=== PATIENT | female | born 1970 | race Caucasian/White ===

== ENCOUNTER 2016-11-13 08:17 | Emergency (ER) | payer OTHER ==
[2016-11-13] MEDS ORDERED: NS 1,000 ML IV ONE (08:26)
--- NOTE | 2016-11-13 08:37 | EDPHY ---
H & P Stated Complaint: Dx UTI last week;on antibx;now has L flank pain and nausea HPI/ROS: Chief complaint: Left kidney pain History of present illness: This is a 46-year-old female who presents to the emergency department for evaluation of left kidney pain. Patient reports the onset of symptoms this morning. Patient reports approximately 2 weeks ago she developed urinary tract infection like symptoms. She states she had dysuria, frequency and hesitancy. She attempted to self treat for the 1st week but symptoms persisted. Ultimately she went to an urgent care was started on Bactrim which she has been taking as prescribed. However symptoms persist. She denies other specific precipitating factors. She denies alleviating factors. She denies other associated signs or symptoms including no fevers, no abdominal pain, no nausea or vomiting. Review of systems: A 10 point review of systems was obtained and other than described above was negative - Personal History LMP (Females 10-55): 8-14 Days Ago Current Tetanus Diphtheria and Acellular Pertussis (TDAP): Yes - Medical/Surgical History Other PMH: depression. ADHD - Social History Smoking Status: Never smoked - Physical Exam Exam: General Appearance: Alert, nontoxic. Eyes: Pupils equal and round no pallor or injection. ENT, Mouth: Mucous membranes moist. Respiratory: There are no retractions, lungs are clear to auscultation. Cardiovascular: Regular rate and rhythm. Gastrointestinal: Abdomen is soft and non tender, no masses, bowel sounds normal. Genitourinary: No CVA tenderness. Neurological: Alert and oriented. Strength and sensation intact and symmetrical. Skin: Warm and dry, no rashes. Musculoskeletal: Neck is supple non tender. Extremities are symmetrical, full range of motion. Psychiatric: Patient is oriented X 3, there is no agitation. Constitutional: Initial Vital Signs Temperature (C) 36.4 C 11/13/16 08:17 Heart Rate 73 11/13/16 08:17 Respiratory Rate 18 11/13/16 08:17 Blood Pressure 121/72 H 11/13/16 08:17 O2 Sat (%) 97 11/13/16 08:17 O2 Delivery Mode Room Air Allergies/Adverse Reactions: No Known Allergies Allergy (Unverified 11/13/16 08:19) Home Medications: Medication Instructions Recorded Cephalexin [Keflex] 500 mg PO QID 10 Days 11/13/16 Dexadrine 11/13/16 Hydrocodone/APAP 5/325 [[place] 1 tab PO Q6H #6 tab 11/13/16 5/325 (*)] Sulfamethox/Tmp 800/160 mg 1 tab PO 11/13/16 [Bactrim Ds] lamoTRIgine [LamICTAL 100 MG (*)] 100 mg PO 11/13/16 Medical Decision Making - Diagnostics Imaging: CT scan of the abdomen pelvis without IV contrast shows what appears to be a left UPJ obstruction, no calculi noted, with severe left hydronephrosis ED Course/Re-evaluation: Patient is discussed with my secondary supervising physician Dr. Malik Galvin. Patient presents to the emergency department with urinary tract infection symptoms and now left flank pain. On presentation she is nontoxic. She is afebrile and vital signs are stable. She has a benign physical exam. Laboratory studies are unremarkable including a normal creatinine and white blood cell level. Urinalysis is concerning for persistent infection. CT scan is pursued to ensure no nephrolithiasis, no nephrolithiasis is noted but a UPJ obstruction causing left hydronephrosis is noted. I have consulted with Urology , Dr. Markel Wu. He feels as long as patient is nontoxic patient can be discharged home on antibiotics and follow up in clinic. Patient is well- appearing. She has been given a dose of Rocephin in the emergency department and will be discharged home on Keflex. Home care is discussed. She is asked to follow up with Urology for further evaluation and care. Referral information is provided. Strict return precautions are given. Patient voiced understanding and agreement with plan. Differential Diagnosis: Included but not limited to cystitis, pyelonephritis, nephrolithiasis, obstructive uropathy - Data Points Laboratory Results: Laboratory Results 11/13/16 08:35 11/13/16 08:35 11/13/16 11/13/16 08:36 08:35 WBC 5.35 10^3/uL (3.80-9.50) RBC 4.72 10^6/uL (4.18-5.33) Hgb 15.3 g/dL (12.6-16.3) Hct 43.7 % (38.0-47.0) MCV 92.6 fL (81.5-99.8) MCH 32.4 pg (27.9-34.1) MCHC 35.0 g/dL (32.4-36.7) RDW 11.9 % (11.5-15.2) Plt Count 206 10^3/uL (150-400) MPV 9.3 fL (8.7-11.7) Neut % (Auto) 69.8 % (39.3-74.2) Lymph % (Auto) 22.2 % (15.0-45.0) [place] % (Auto) 6.7 % (4.5-13.0) Eos % (Auto) 0.7 % (0.6-7.6) Baso % (Auto) 0.4 % (0.3-1.7) Nucleat RBC Rel Count 0.0 % (0.0-0.2) Absolute Neuts (auto) 3.73 10^3/uL (1.70-6.50) Absolute Lymphs (auto) 1.19 10^3/uL (1.00-3.00) Absolute Monos (auto) 0.36 10^3/uL (0.30-0.80) Absolute Eos (auto) 0.04 10^3/uL (0.03-0.40) Absolute Basos (auto) 0.02 10^3/uL (0.02-0.10) Absolute Nucleated RBC 0.00 10^3/uL (0-0.01) Immature Gran % 0.2 % (0.0-1.1) Immature Gran # 0.01 10^3/uL (0.00-0.10) Sodium 137 mEq/L (134-144) Potassium 3.8 mEq/L (3.5-5.2) Chloride 102 mEq/L (97-110) Carbon Dioxide 25 mEq/l (22-31) Anion Gap 10 mEq/L (8-16) BUN 5 L mg/dL (7-23) Creatinine 0.8 mg/dL (0.6-1.0) Estimated GFR > 60 Glucose 102 H mg/dL (70-100) Calcium 9.0 mg/dL (8.5-10.4) Beta HCG, Qual NEGATIVE Urine Color YELLOW Urine Appearance MODERATELY TURBID Urine pH 6.0 (5.0-7.5) Ur Specific [place] 1.006 (1.002-1.030) Urine Protein NEGATIVE (NEGATIVE) Urine Ketones NEGATIVE (NEGATIVE) Urine Blood 1+ H (NEGATIVE) Urine Nitrate POSITIVE H (NEGATIVE) Urine Bilirubin NEGATIVE (NEGATIVE) Urine Urobilinogen NEGATIVE EU (0.2-1.0) Ur Leukocyte Esterase 3+ H (NEGATIVE) Urine RBC 25-50 H /hpf (0-3) Urine WBC 50-182 H /hpf (0-3) Ur Epithelial Cells NONE SEEN /lpf (NONE-1+) Urine Bacteria 2+ H /hpf (NONE SEEN) Ur Culture Indicated? INDICATED H (NI) Urine Glucose NEGATIVE (NEGATIVE) Medications Given: Discontinued Medications Sodium Chloride (Ns) 1,000 mls @ 0 mls/hr IV ONCE ONE PRN Reason: Wide Open Stop: 11/13/16 08:27 Last Admin: 11/13/16 08:50 Dose: 1,000 mls Ceftriaxone Sodium/Dextrose (Rocephin 1 Gm (Premix)) 50 mls @ 100 mls/hr IV EDNOW ONE PRN Reason: Protocol Stop: 11/13/16 10:18 Last Admin: 11/13/16 10:08 Dose: 50 mls Ketorolac Tromethamine (Toradol) 15 mg IVP EDNOW ONE Stop: 11/13/16 10:29 Last Admin: 11/13/16 11:14 Dose: 15 mg Departure - Departure Disposition: Home, Routine, Self-Care Clinical Impression: Acute pyelonephritis Condition: Good Instructions: Urinary Tract Infection in Women (ED) Additional Instructions: Follow-up with a primary care doctor and Urology this week for recheck Stop taking the Bactrim you were prescribed and start taking the Keflex Take all antibiotics as prescribed until finished even if feeling better In regards to pain control see the following: Use ibuprofen 600 mg 3 times a day for the next 2-3 days for pain In addition You have been prescribed [[place]] for pain. [[place]] contains Tylenol, do not take extra Tylenol/acetaminophen/Apap with it. It is sedating. Drink plenty of fluids to stay hydrated If symptoms worsen or new symptoms develop return to the emergency department for recheck Referrals: IN STATE,. [Primary Care Provider] - As per Instructions Markel Wu MD [Medical Doctor] - As per Instructions Ann Herrera MD [Medical Doctor] - As per Instructions Prescriptions: Cephalexin [Keflex] 500 mg PO QID 10 Days Hydrocodone/APAP 5/325 [[place] 5/325 (*)] 1 tab PO Q6H #6 tab
[2016-11-13 08:54] LABS: % IMMATURE GRANULYOCYTES 0.2 % (0.0-1.1); ABSOLUTE IMMATURE GRANULOCYTES 0.01 10^3/uL (0.00-0.10); ADD DIFF? NO; ADD MORPH? NO; ADD SCAN? NO; ATYPICAL LYMPHOCYTE FLAG 50 (0-99); FRAGMENT RBC FLAG 0 (0-99); HEMATOCRIT 43.7 % (38.0-47.0); HEMOGLOBIN 15.3 g/dL (12.6-16.3); LEFT SHIFT FLG 0 (0-99); LIPEMIA HEMOLYSIS FLAG 90 (0-99); MEAN CELL HEMOGLOBIN 32.4 pg (27.9-34.1); MEAN CELL VOLUME 92.6 fL (81.5-99.8); MEAN PLATELET VOLUME 9.3 fL (8.7-11.7); PLATELET CLUMPS FLAG 0 (0-99); PLATELET COUNT 206 10^3/uL (150-400); RED BLOOD CELL COUNT 4.72 10^6/uL (4.18-5.33); RED CELL DISTRIBUTION WIDTH 11.9 % (11.5-15.2)
[2016-11-13 09:07] LABS: ANION GAP 10 mEq/L (8-16); CARBON DIOXIDE 25 mEq/l (22-31); CHLORIDE 102 mEq/L (97-110); CREATININE 0.8 mg/dL (0.6-1.0); GLOMERULAR FILTRATION RATE > 60; GLUCOSE 102 mg/dL (70-100); POTASSIUM 3.8 mEq/L (3.5-5.2); SODIUM 137 mEq/L (134-144)
[2016-11-13 09:37] LABS: COLOR YELLOW; LEUKOCYTE ESTERASE,URINE 3+ (NEGATIVE); NITRITE,URINE POSITIVE (NEGATIVE)
[2016-11-13 09:54] LABS: BACTERIA 2+ /hpf (NONE SEEN); RBC,URINE 25-50 /hpf (0-3); WBC,URINE 50-182 /hpf (0-3)
[2016-11-13] MEDS ORDERED: KETOROLAC 15 MG/1 ML SDV IVP ONE (10:28)
[2016-11-13 11:36] VITALS: BP 121/76; PULSE 67; RESP 16; TEMP 97.9; O2SAT 98
--- NOTE | 2016-11-13 11:40 | CT ---
CT Scan of the Urinary Tract (Abdomen and Pelvis Without Contrast) November 13, 2016 at 1048 Hours Clinical Indications: Left flank pain. Technique: Multidetector helical CT imaging was performed from the kidneys to the urinary bladder wi thout contrast. Dose reduction techniques were utilized. Findings Abdomen: The lung bases are clear. There appears to be some focal fatty infiltration along the falcif orm ligament of the liver. Gallbladder is unremarkable. Pancreas is unremarkable. Spleen is unremarka ble. There is severe left hydronephrosis and dilatation of the left renal pelvis, indicating a ureter opelvic junction obstruction. No evidence for an obstructing calculus. There is perinephric stranding around the left kidney. No evidence for hydronephrosis of the right kidney or nephrolithiasis. Pelvis: No evidence of dilatation of the ureter or ureteral calculus. No evidence for bladder calculu s. Minimal free fluid is seen in the cul-de-sac. Moderate stool is seen in the colon. No evidence for diverticulitis. No evidence for small bowel obstruction. Degenerative disk and degenerative joint di sease is seen in the lower lumbar spine. Mild chronic anterior wedge compression deformity is seen of T12. Impression: 1. Severe hydronephrosis left kidney with ureteropelvic obstruction. No evidence for obstructing calc ulus. 2. Moderate constipation. 3. Other chronic findings, as above. Results called to Myke Butler PA-C. Attention: This CT examination is specifically designed to evaluate patients who are clinically susp ected of having acute obstructive uropathy. This examination does not use radiographic contrast, and as such, provides only a limited evaluation of the abdomen, pelvis, and retroperitoneum. If there is further clinical suspicion for pathological conditions other than obstructive uropathy, a complete CT evaluation of the abdomen and pelvis utilizing intravenous, oral, and rectal contrast should be c onsidered.
== END 2016-11-13 11:35 | disposition home or self-care (01) ==
DX: N10 Acute pyelonephritis (principal)
CPT/HCPCS: 96365; J0696; J1885

== ENCOUNTER → 2018-01-08 | Outpatient (CLI) | payer OTHER | LOC: FIMAGING 14:47 | PROVIDERS: ATTEND Physician Assistant | DX: N13.0 Hydronephrosis with ureteropelvic junction obstruction (principal); M51.34 Other intervertebral disc degeneration, thoracic region ==

== ENCOUNTER 2018-01-09 04:37 | Emergency (ER) | payer OTHER ==
[2018-01-09] MEDS ORDERED: HYDROmorphONE/DILAUDID 2 MG/ML INJ IVP ONE (04:48)
[2018-01-09] MEDS ORDERED: NS 1,000 ML IV ONE (04:48)
--- NOTE | 2018-01-09 04:48 | EDPHY ---
H & P Stated Complaint: L flank pain - Told to come in by PCP due to Hydronephrosis. Time Seen by Provider: 01/09/18 04:48 HPI/ROS: HPI CHIEF COMPLAINT: Left flank pain worsening. HISTORY OF PRESENT ILLNESS: This patient very pleasant 47-year-old female, for the past 2 weeks she has had some left-sided discomfort however last 48 hr it has gotten worse. She went saw her primary care doctor today and had a urinalysis done any CT scan the CT scan according to the patient showed severe hydronephrosis. She reports that her urinalysis did not show any infection but she was still started on ciprofloxacin. She was referred to Urology. She cannot see Urology till tomorrow. She is referred to the ER tonight after she called her primary care doctor with worsening left flank pain. She has had nausea but no vomiting. Denies fever. Denies urinary symptoms. Denies chest pain or shortness of breath or hematuria. Past Medical History: No significant medical history Past Surgical History: No significant surgical history Social History: Denies drugs alcohol tobacco. Family History: Noncontributory ROS REVIEW OF SYSTEMS: A comprehensive 10 point review of systems is otherwise negative aside from elements mentioned in the history of present illness. Exam Constitutional appears well nontoxic no acute distress, triage nursing summary reviewed, vital signs reviewed, awake/alert. Eyes normal conjunctivae and sclera, EOMI, PERRLA. HENT normal inspection, atraumatic, moist mucus membranes, no epistaxis, neck supple/ no meningismus, no raccoon eyes. Respiratory clear to auscultation bilaterally, normal breath sounds, no respiratory distress, no wheezing. Cardiovascular rate normal, regular rhythm, no murmur, no edema, distal pulses normal. Gastrointestinal soft, non-tender, no rebound, no guarding, normal bowel sounds, no distension, no pulsatile mass. Genitourinary mild tender palpation left flank, Musculoskeletal no midline vertebral tenderness, full range of motion, no calf swelling, no tenderness of extremities, no meningismus, good pulses, neurovascularly intact. Skin pink, warm, & dry, no rash, skin atraumatic. Neurologic awake, alert and oriented x 3, AAOx3, moves all 4 extremities equally, motor intact, sensory intact, CN II-XII intact, normal cerebellar, normal vision, normal speech. Psychiatric normal mood/affect. Heme/Lymph/Immune no lymphadenopathy. Differential Diagnosis: Includes but is not limited to in a particular order, UTI, pyelonephritis, hydroureter, kidney stone, ureteral obstruction, sepsis Medical Decision Making: Plan for this patient IV establishment with IV hydration, IV pain control 0.5 mg Dilaudid, check basic blood work, repeat urinalysis. I will review her CT scan and urinalysis from today. Re-evaluation: Patient CT earlier today that showed obstruction left ureter. I was able to review the CT from earlier today it does show severe hydronephrosis from a left UPJ obstruction. No calculus seen. This is similar to the previous CT scan dated in 2017 on November 13. 0557: Spoke with Dr. Martinez, I discussed this case in length with Urology went over her to CT scan results and blood work and urinalysis today. She does recommend she follows up with Urology tomorrow 1:00 p.m. And R to previously scheduled appointment. Provide pain medicine for pain control and comfort at home. I have discussed this with this patient she is comfortable this plan. Her blood work has been reviewed she does not have a systemic leukocytosis, her creatinine is normal, CT scans have been reviewed both October CT and yesterday CT. She has a left UPJ obstruction. Unclear what obstructing this but will need urology referral and patient understands this. Source: Patient - Personal History LMP (Females 10-55): 1-7 Days Ago Current Tetanus/Diphtheria Vaccine: Unsure Current Tetanus Diphtheria and Acellular Pertussis (TDAP): Unsure - Medical/Surgical History Hx Asthma: No Hx Chronic Respiratory Disease: No Hx Diabetes: No Hx Cardiac Disease: No Hx Renal Disease: No Hx Cirrhosis: No Hx Alcoholism: No Hx HIV/AIDS: No Hx Splenectomy or Spleen Trauma: No Other PMH: depression. D&C. Hydronephrosis - Social History Smoking Status: Never smoked Constitutional: Initial Vital Signs Temperature (C) 36.4 C 01/09/18 04:40 Heart Rate 49 L 01/09/18 04:40 Respiratory Rate 15 01/09/18 04:40 Blood Pressure 125/64 H 01/09/18 04:40 O2 Sat (%) 92 01/09/18 04:40 O2 Delivery Mode Room Air Allergies/Adverse Reactions: No Known Allergies Allergy (Unverified 11/13/16 08:19) Home Medications: Medication Instructions Recorded Dexadrine 11/13/16 lamoTRIgine [LamICTAL 100 MG (*)] 100 mg PO 11/13/16 Ciprofloxacin 01/09/18 Hydrocodone/APAP 5/325 [[place] 1 - 2 tab PO Q4H PRN #10 tab 01/09/18 5/325] Pramipexole Di-HCl 01/09/18 Promethazine HCl [Phenergan 12.5mg 12.5 mg PO BID #10 tablet 01/09/18 tab] Medical Decision Making - Data Points Laboratory Results: Laboratory Results 01/09/18 05:00 01/09/18 05:00 01/09/18 01/09/18 01/09/18 05:00 05:00 05:00 WBC RBC Hgb Hct MCV MCH MCHC RDW Plt Count MPV Neut % (Auto) Lymph % (Auto) [place] % (Auto) Eos % (Auto) Baso % (Auto) Nucleat RBC Rel Count Absolute Neuts (auto) Absolute Lymphs (auto) Absolute Monos (auto) Absolute Eos (auto) Absolute Basos (auto) Absolute Nucleated RBC Immature Gran % Immature Gran # Sodium 140 mEq/L mEq/L (135-145) Potassium 3.7 mEq/L mEq/L (3.5-5.2) Chloride 99 mEq/L mEq/L (97-110) Carbon Dioxide 28 mEq/l mEq/l (22-31) Anion Gap 13 mEq/L mEq/L (8-16) BUN 14 mg/dL mg/dL (7-23) Creatinine 0.9 mg/dL mg/dL (0.6-1.0) Estimated GFR > 60 Glucose 128 mg/dL H mg/dL (70-100) Calcium 8.8 mg/dL mg/dL (8.5-10.4) Total Bilirubin 0.9 mg/dL mg/dL (0.1-1.4) Conjugated Bilirubin 0.2 mg/dL mg/dL (0.0-0.5) Unconjugated Bilirubin 0.7 mg/dL mg/dL (0.0-1.1) AST 21 IU/L IU/L (14-46) ALT 36 IU/L IU/L (9-52) Alkaline Phosphatase 51 IU/L IU/L (38-126) Total Protein 7.1 g/dL g/dL (6.3-8.2) Albumin 4.2 g/dL g/dL (3.5-5.0) Lipase 72 IU/L IU/L (23-300) Beta HCG, Qual NEGATIVE Urine Color PALE YELLOW Urine Appearance HAZY Urine pH 5.0 (5.0-7.5) Ur Specific [place] 1.005 (1.002-1.030) Urine Protein NEGATIVE (NEGATIVE) Urine Ketones NEGATIVE (NEGATIVE) Urine Blood 1+ H (NEGATIVE) Urine Nitrate NEGATIVE (NEGATIVE) Urine Bilirubin NEGATIVE (NEGATIVE) Urine Urobilinogen NEGATIVE EU EU (0.2-1.0) Ur Leukocyte Esterase NEGATIVE (NEGATIVE) Urine RBC NONE SEEN /hpf /hpf (0-3) Urine WBC NONE SEEN /hpf /hpf (0-3) Ur Epithelial Cells 1+ /lpf /lpf (NONE-1+) Urine Bacteria TRACE /hpf H /hpf (NONE SEEN) Urine Mucus TRACE /lpf /lpf (NONE-1+) Urine Glucose NEGATIVE (NEGATIVE) 01/09/18 05:00 WBC 5.12 10^3/uL 10^3/uL (3.80-9.50) RBC 4.76 10^6/uL 10^6/uL (4.18-5.33) Hgb 14.7 g/dL g/dL (12.6-16.3) Hct 44.1 % % (38.0-47.0) MCV 92.6 fL fL (81.5-99.8) MCH 30.9 pg pg (27.9-34.1) MCHC 33.3 g/dL g/dL (32.4-36.7) RDW 13.5 % % (11.5-15.2) Plt Count 193 10^3/uL 10^3/uL (150-400) MPV 10.1 fL fL (8.7-11.7) Neut % (Auto) 65.8 % % (39.3-74.2) Lymph % (Auto) 24.8 % % (15.0-45.0) [place] % (Auto) 6.8 % % (4.5-13.0) Eos % (Auto) 1.8 % % (0.6-7.6) Baso % (Auto) 0.6 % % (0.3-1.7) Nucleat RBC Rel Count 0.0 % % (0.0-0.2) Absolute Neuts (auto) 3.37 10^3/uL 10^3/uL (1.70-6.50) Absolute Lymphs (auto) 1.27 10^3/uL 10^3/uL (1.00-3.00) Absolute Monos (auto) 0.35 10^3/uL 10^3/uL (0.30-0.80) Absolute Eos (auto) 0.09 10^3/uL 10^3/uL (0.03-0.40) Absolute Basos (auto) 0.03 10^3/uL 10^3/uL (0.02-0.10) Absolute Nucleated RBC 0.00 10^3/uL 10^3/uL (0-0.01) Immature Gran % 0.2 % % (0.0-1.1) Immature Gran # 0.01 10^3/uL 10^3/uL (0.00-0.10) Sodium Potassium Chloride Carbon Dioxide Anion Gap BUN Creatinine Estimated GFR Glucose Calcium Total Bilirubin Conjugated Bilirubin Unconjugated Bilirubin AST ALT Alkaline Phosphatase Total Protein Albumin Lipase Beta HCG, Qual Urine Color Urine Appearance Urine pH Ur Specific [place] Urine Protein Urine Ketones Urine Blood Urine Nitrate Urine Bilirubin Urine Urobilinogen Ur Leukocyte Esterase Urine RBC Urine WBC Ur Epithelial Cells Urine Bacteria Urine Mucus Urine Glucose Medications Given: Discontinued Medications Sodium Chloride (Ns) 1,000 mls @ 0 mls/hr IV EDNOW ONE; Wide [place] PRN Reason: Protocol Stop: 01/09/18 04:49 Last Admin: 01/09/18 05:05 Dose: 1,000 mls Departure - Departure Disposition: Home, Routine, Self-Care Clinical Impression: Flank pain Condition: Good Instructions: Flank Pain (ED) Additional Instructions: 1. Follow up with Urology. 2. Return emergency room if develops worsening pain fever vomiting. 3. I provided you pain medicine. Take this with a full stomach you can cause nausea and sleepiness. Do not drive while taking this. Referrals: Yvette Boss PA [Primary Care Provider] - As per Instructions Ann Alvarez MD [Medical Doctor] - As per Instructions Prescriptions: Hydrocodone/APAP 5/325 [[place] 5/325] 1 - 2 tab PO Q4H PRN #10 tab PRN Reason: Pain, Moderate Promethazine HCl [Phenergan 12.5mg tab] 12.5 mg PO BID #10 tablet
[2018-01-09 05:10] LABS: PLATELET COUNT 193 10^3/uL (150-400)
[2018-01-09 06:38] VITALS: BP 123/60
== END 2018-01-09 06:37 | disposition home or self-care (01) ==
DX: R10.9 Unspecified abdominal pain (principal); E86.9 Volume depletion, unspecified

== ENCOUNTER → 2018-02-12 | Outpatient (CLI) | payer OTHER ==
[~2018-02-12] MED LIST: FUROSEMIDE 40 MG/4 ML VIAL ONE
== END ==
LOC: FIMAGING 13:17
DX: N13.0 Hydronephrosis with ureteropelvic junction obstruction (principal); Q62.39 Other obstructive defects of renal pelvis and ureter
CPT/HCPCS: 78708; A9562; J1940